=== PATIENT | male | born 1945 | race Caucasian/White ===

== ENCOUNTER 2020-03-09 16:23 | Emergency (ER) | payer OTHER, SELFPAY ==
[2020-03-09 16:55] VITALS: BP 183/108; PULSE 64; RESP 16; TEMP 36.4; O2SAT 97; BMI 24.3
--- NOTE | 2020-03-09 17:52 | ED_ITS ---
HPI - Wound/Laceration General: Chief Complaint: Wound/Laceration Stated Complaint: hand lac Time Seen by Provider: 03/09/20 17:49 Source: patient Mode of arrival: ambulatory Limitations: no limitations History of Present Illness: HPI narrative: pt here with a laceration to R index finger that he sustained on a piece of leaf blowing equipment; unknown when last tetanus was Onset (ago): hour(s) Extremity Location: Right: hand Place: home Patient tetanus UTD: No Context: accidental Associated symptoms: Reports no associated symptoms Treatments prior to arrival: other (irrigation/pressure) Review of Systems Skin/Breast: Reports: other (laceration R index finger) Neuro: Denies: numbness in extremities or changes in sensation PFSH ED PFSH: Social History Smoking and tobacco status: former smoker Physical Exam Const: COMMON NORMALS: no apparent distress, average body habitus, oriented x3, no limitations, healthy appearing, alert and well nourished Extremity: OTHER: small 1cm laceration to palmar tip of R index finger; no nail damage Neuro: COMMON NORMALS: oriented x3 SENSORIUM/ORIENTATION: Yes alert Skin: OTHER: see extremity assessment Procedures Laceration Laceration 1: Site: hand (R index finger) Side (If applicable): right Size (cm): 1.0 Description: linear Local Anesthetic: lidocaine 1% Amount of anesthesia used (mL): 0.5 Pre-repair: wound explored and irrigated extensively Skin layer closed with: nylon Size (cm): 4-0 Number of sutures: 3 Technique: simple, interrupted Course Vital Signs: Vital signs: Vital Signs Temperature 97.5 F L 03/09/20 16:55 Pulse Rate 64 03/09/20 16:55 Respiratory Rate 16 03/09/20 16:55 Blood Pressure 183/108 03/09/20 16:55 Pulse Oximetry 97 03/09/20 16:55 MDM - Wound/Laceration Imaging Data^: R index finger XR: My impression: no fracture noted; no fbs Discharge Plan Discharge Patient Disposition: Home, Self-Care Clinical Impression: Laceration of right index finger Qualifiers: Encounter type: initial encounter Damage to nail status: without damage Foreign body presence: without foreign body Qualified Code(s): S61.210A - Laceration without foreign body of right index finger without damage to nail, initial encounter Condition: Stable Discharge Orders: Discharge Order (Routine); Ordered 03/09/20 Ordered By: Zoey Winkler Discharge Diet: Usual diet Discharge Activity: Resume usual activity Patient Instructions: Suture Care (ED), Laceration (ED), Finger Laceration (ED) Activity Restrictions/Additional Instructions: Keep wound clean with warm soap and water several times daily. Sutures can be cut out in 7 days. Monitor for signs of infection such as redness, drainage, swelling, or increased pain. Coding Level of Care Code ED [employer] for [employer] Exam Problem Focused
--- NOTE | 2020-03-09 17:52 | XR_ITS ---
WS: [id number] RIGHT SECOND FINGER 2 VIEW TECHNIQUE: AP and lateral HISTORY: trauma; index finger COMPARISON: None available. No fracture, dislocation or joint abnormality. Mild soft tissue edema distally. No foreign body. XR/XR finger RT min 2V [id number] IMPRESSION: Mild soft tissue edema over the distal second finger.
[2020-03-09] MEDS: tetanus-diphtheria tox (adult) 0.5 mL SDV IM (18:04)
--- NOTE | 2020-03-09 18:26 | PC.NURSE ---
Wound cleansed with saline flush and dry dressing of guaze applied. Patient tolerated well and does not have any reaction to tetanus injection at this time.
[2020-03-09 18:34] VITALS: BP 175/83; PULSE 58; RESP 19; O2SAT 97
== END 2020-03-09 18:35 | disposition home or self-care (01) ==
PROVIDERS: Emergency Provider Physician Assistant
DX: S61.210A Laceration without foreign body of right index finger without damage to nail, initial encounter (principal); W23.0XXA Caught, crushed, jammed, or pinched between moving objects, initial encounter; Z87.891 Personal history of nicotine dependence; Z23 Encounter for immunization
CPT/HCPCS: 12002; 12345; 73140; 90471; 90714; 99281; 99282